=== PATIENT | male | born 1990 | race Caucasian/White ===

== ENCOUNTER 2021-03-18 12:13 | Emergency (ER) | payer OTHER ==
[2021-03-18] MEDS ORDERED: IBUPROFEN 800 MG TABLET PO STA (12:56)
[2021-03-18] MEDS ORDERED: HYDROcod/ACETAM 5/325 MG TABLET PO STA (13:22)
--- NOTE | 2021-03-18 13:35 | XRAY Report ---
PROCEDURE: Elbow 2 View LT INDICATIONS: TRAUMA / FELL OFF SKATEBOARD TECHNIQUE: 2 views of the elbow were acquired. COMPARISON: None FINDINGS: Bones: There is a prominent left elbow fracture dislocation, with posterior dislocation of the olecra non in relation to the distal humerus. There is a moderately to prominently displaced fracture of the coronoid process of the humerus. Soft tissues: There is a minimal joint effusion. Soft tissue swelling is seen. IMPRESSION: Prominent elbow fracture/dislocation, with a moderately to prominently displaced fracture of the srinivasa noid process. If it would be helpful for clinical management decision making, please consider a dedicated elbow CT for further evaluation. Reviewed by: Dre Thompson MD on 03/18/2021 12:34 PM [facility] Approved by: Dre Thompson MD on 03/18/2021 12:34 PM [facility] Station ID: [id number]
--- NOTE | 2021-03-18 14:39 | ED Physician Documentation ---
PD HPI UPPER EXT INJURY - Stated complaint Stated Complaint: L ARM INJURY - Chief complaint Chief Complaint: Trauma Ext - History obtained from History obtained from: Patient - History of Present Illness Location: Left, Elbow Type of injury: Fall Where injury occurred: Street Timing - onset: Today Timing - duration: Hours (2) Timing - details: Abrupt onset Pain level max: 8 Pain level now: 6 Improved by: Rest Worsened by: Moving, Palpating Associated symptoms: Weakness, Numbness, Tingling, Swelling Recently seen: Not recently seen - Additonal information Additional information: Patient was skateboarding today when he fell off of a skateboard landing on the left elbow. Now complains of pain. No head, neck, back pain. Review of Systems Ten Systems: 10 systems reviewed and negative Constitutional: denies: Fever, Chills Respiratory: denies: Cough, Wheezing GI: denies: Vomiting : denies: Dysuria Skin: denies: Rash Musculoskeletal: denies: Neck pain, Back pain Neurologic: denies: Headache PD PAST MEDICAL HISTORY - Past Medical History Past Medical History: Yes - Present Medications Home Medications: Ambulatory Orders Medication Instructions Recorded Confirmed HYDROcod/ACETAM 5/325 [Chavies 5/325] 1 - 2 ea PO Q6H PRN #14 tablet 03/18/21 - Allergies Allergies/Adverse Reactions: Allergies Allergy/AdvReac Type Severity Reaction Status Date / Time No Known Drug Allergies Allergy Verified 03/18/21 12:35 PD ED PE NORMAL - Vitals Vital signs reviewed: Yes - General General: Alert and oriented X 3, No acute distress - HEENT HEENT: Atraumatic, Moist mucous membranes - Neck Neck: Supple, no meningeal sign, No bony TTP - Cardiac Cardiac: RRR, Strong equal pulses - Respiratory Respiratory: No respiratory distress, Clear bilaterally - Abdomen Abdomen: Soft, Non tender, Non distended - Back Back: No spinal TTP - Derm Derm: Warm and dry - Extremities Extremities: Other (L arm - deformity noted at the L elbow. NVI. Limited ROM 2/2 pain. no tenderness over shoulder or wrist.) - Neuro Neuro: Alert and oriented X 3, adult live in caregiver 2-12 intact, No motor deficit, No sensory deficit - Psych Psych: Normal mood, Normal affect Results - Vitals Vitals: Vital Signs - 24 hr 03/18/21 03/18/21 03/18/21 15:10 15:23 15:25 Temperature Heart Rate 60 82 90 Respiratory 16 16 16 Rate Blood Pressure 145/82 H 148/84 H O2 Saturation 100 100 03/18/21 16:04 Temperature 36.7 C Heart Rate 84 Respiratory 16 Rate Blood Pressure 130/78 O2 Saturation 100 Oxygen O2 Source Room air - Rads (name of study) L elbow xray Radiology: Prelim report reviewed, EMP read contemporaneously, See rad report (Prominent elbow fracture/dislocation, with a moderately to prominently displaced fracture of the coronoid process. ) post reduction xray Radiology: Prelim report reviewed, EMP read contemporaneously, See rad report (Status post reduction of left elbow dislocation. ) Procedures - Splint (location) L arm Splint applied by: Physician Type of splint: Fiberglass, Long arm, Posterior Other: Patient tolerated well, No complications, Neurovascular intact, Good alignment, Sling provided - Reduction Body part reduced: Left, Elbow Fracture or dislocation: Fracture dislocation Anesthesia: Conscious sedation Elbow reduction technique: Traction counter traction Reduction aftercare: NV intact, Xray confirms reduction, Alignment improved, Splint applied, Sling, Patient tolerated well - Procedural sedation Sedation prep: Informed consent, Time out completed, Last meal (0900), ASA 1 - healthy, IV O2 monitor, ET CO2 monitor, RT present Sedation medications: propofol, given by MD Patient status during sedation: Responds to tactile, Vitals remained stable, Maintained airway, Recovered uneventfully Sedation recovery: Recovered uneventfully Time in sedation (Minutes): 15 PD MEDICAL DECISION MAKING - ED course Complexity details: reviewed results, re-evaluated patient, considered differential, d/w patient ED course: The left elbow dislocation fracture was reduced. Tolerated well. Placed in a long-arm posterior splint. Placed in a sling. We will have him follow-up with orthopedics for further care. Neurovascularly intact. Patient counseled regarding signs and symptoms for which I believe and urgent re-evaluation would be necessary. Patient with good understanding of and agreement to plan and is comfortable going home at this time This document was made in part using voice recognition software. While efforts a re made to proofread this document, sound alike and grammatical errors may occur. Departure - Departure Disposition: 01 Home, Self Care Clinical Impression: Dislocation of left elbow Qualifiers: Encounter type: initial encounter Qualified Code(s): S53.105A - Unspecified dislocation of left ulnohumeral joint, initial encounter Fx coronoid proc ulna-closed Qualifiers: Encounter type: initial encounter Fracture alignment: displaced Laterality: left Qualified Code(s): S52.042A - Displaced fracture of coronoid process of left ulna, initial encounter for closed fracture Condition: Good Instructions: ED Dislocated Elbow, ED Fx Upper Ext Follow-Up: Dwight Leos MD [Provider Admit Priv/Credential] - [facility] [Provider Group] - Within 1 week Prescriptions: HYDROcod/ACETAM 5/325 [Chavies 5/325] 1 - 2 ea PO Q6H PRN #14 tablet PRN Reason: Pain Comments: Follow-up with orthopedics for further care. You are to stay in the sling and splint until released by orthopedics. You can use the Vicodin as needed for pain. Do not drink alcohol or drive while on narcotic pain medicine. Your dislocation and fracture were reducted today. Note that many narcotic pain relievers also contain tylenol/acetaminophen. Please ensure that your total dose of acetaminophen from all sources does not exceed 3 grams (3000mg) per day. You may constipated on this medication, take a stool softener such as "Colace" twice a day while you are on it. Also recommend a [id number] laxative such as senna or MiraLAX any day that you do not have a bowel movement. If you received narcotic pain medication in the emergency department, do not drive or operate machinery for the next 24 hours. Left elbow xray: Prominent elbow fracture/dislocation, with a moderately to prominently displaced fracture of the coronoid process. Forms: Activity restrictions Discharge Date/Time: 03/18/21 16:04
[2021-03-18] MEDS ORDERED: PROPOFOL 200 MG/20 ML VIAL IVP STA (14:40)
[2021-03-18] MEDS ORDERED: SODIUM CHLORIDE 0.9% 1,000 ML IV STA (14:41)
--- NOTE | 2021-03-18 15:58 | XRAY Report ---
PROCEDURE: Elbow 2 View LT INDICATIONS: post reduction TECHNIQUE: 2 view of the elbow were acquired. COMPARISON: 03/18/2021 FINDINGS: Status post reduction of the left elbow dislocation there is normal association humerus with the ulna in the current study. Previously identified ulnar coronoid process fracture is not well seen on the current study. IMPRESSION: Status post reduction of left elbow dislocation. Reviewed by: Elizabeth Anaya MD, PhD on 03/18/2021 3:57 PM PDT Approved by: Elizabeth Anaya MD, PhD on 03/18/2021 3:57 PM PDT Station ID: [id number]
[2021-03-18 16:05] VITALS: BP 130/78
== END 2021-03-18 16:04 | disposition home or self-care (01) ==
LOC: ED 12:13
DX: S52.042A Displaced fracture of coronoid process of left ulna, initial encounter for closed fracture (principal); V00.131A Fall from skateboard, initial encounter; Y93.51 Activity, roller skating (inline) and skateboarding; Y92.410 Unspecified street and highway as the place of occurrence of the external cause
CPT/HCPCS: 24675; 73070; 99152; 99284; 99285; A9270; 94770

== ENCOUNTER 2021-05-23 17:51 | Outpatient (CLI) | payer OTHER ==
--- NOTE | 2021-05-24 06:06 | XRAY Report ---
PROCEDURE: Elbow 3 View LT INDICATIONS: NONDISPLACED FX OF CORONOID PROCESS OF R ULNA TECHNIQUE: 3 views of the elbow were acquired. COMPARISON: Prior elbow series dated 03/18/2021. FINDINGS: Bones: Bony fragment seen adjacent to the radial head which could be related to fractured coronoid pr ocess.. No suspicious bony lesions. Soft tissues: No elbow joint effusion. No suspicious soft tissue calcifications. IMPRESSION: Expected bony alignment and bony fragment adjacent to the radial head which could be related to fract ured coronoid process. Reviewed by: AGUILAR Grubbs on 05/24/2021 6:04 AM PDT Approved by: Nigel Welch MD on 05/24/2021 6:04 AM PDT Station ID: [id number]
== END 2021-05-23 17:52 | disposition home or self-care (01) ==
LOC: DI.N 17:51
PROVIDERS: ATTEND Orthopaedic Surgery
DX: S53.125A Posterior dislocation of left ulnohumeral joint, initial encounter (principal); R93.6 Abnormal findings on diagnostic imaging of limbs